=== PATIENT | male | born 1980 | race Caucasian/White ===

== ENCOUNTER 2021-10-09 22:23 | Inpatient (IN) | payer OTHER ==
[2021-10-09] MEDS ORDERED: ACETAMINOPHEN 1000 MG/100 ML BAG IVPB ONE (23:09)
[2021-10-09 23:37] LABS: EOS % 1.1 % (0-4.5); HEMATOCRIT 41.2 % (35.4-49); HEMOGLOBIN 13.9 GM/dL (11.7-16.9); MCH 29.9 pg (25.7-33.7); MCHC 33.8 g/dl (32.0-35.9); MEAN CELL VOLUME 88.4 fl (80-96); MEAN PLT VOLUME 8.5 fl (7.5-11.1); MONO % 8.4 % (3.8-10.2); NEUT % 70.5 % (42.8-82.8); PLATELET COUNT 219 10^3/uL (134-434); RBC 4.66 M/mm3 (4.00-5.60); RDW 13.8 % (11.9-15.9)
[2021-10-09 23:46] LABS: INR 1.09 (0.83-1.09); PROTHROMBIN TIME (PATIENT) 12.5 SEC (9.7-13.0)
[2021-10-10 00:03] LABS: ALBUMIN 3.6 g/dl (3.4-5.0); BLOOD UREA NITROGEN 20.3 mg/dL (7-18); CALCIUM 8.7 mg/dL (8.5-10.1)
[2021-10-10 00:06] LABS: CREATININE 0.9 mg/dL (0.55-1.3)
[2021-10-10 00:08] LABS: BILIRUBIN,TOTAL 0.3 mg/dL (0.2-1); TOT PROT 7.1 g/dl (6.4-8.2)
[2021-10-10] MEDS ORDERED: CEFAZOLIN 1 GM/D5W 1 GM/50 ML BAG IVPB ONE (02:27)
[2021-10-10] MEDS ORDERED: KETOROLAC TROMETHAMINE 15 MG/ML VIAL IM ONE (03:01)
[2021-10-10] MEDS ORDERED: KETOROLAC TROMETHAMINE 15 MG/ML VIAL ONE (03:05)
[2021-10-10] MEDS ORDERED: ceFAZolin SODIUM 1 GM VIAL ONE (03:06)
[2021-10-10] MEDS ORDERED: SODIUM CHLORIDE 1,000 ML IV SCH (07:15)
[2021-10-10] MEDS ORDERED: oxyCODONE HCL 5 MG TABLET ONE (08:03)
[2021-10-10] MEDS: VANCOMYCIN/WATER 1,250 MG/250 ML BAG IVPB SCH ×2 (08:08→21:21)
[2021-10-10] MEDS: oxyCODONE HCL 5 MG TABLET PO PRN ×3 (08:27→23:13)
[2021-10-10 09:48] LABS: BLOOD UREA NITROGEN 13.2 mg/dL (7-18); CALCIUM 9.3 mg/dL (8.5-10.1)
[2021-10-10 09:51] LABS: BASO % 0.5 % (0-2.0); EOS % 1.3 % (0-4.5); HEMATOCRIT 42.8 % (35.4-49); HEMOGLOBIN 14.2 GM/dL (11.7-16.9); LYMPH % 19.3 % (8-40); MCH 29.5 pg (25.7-33.7); MCHC 33.1 g/dl (32.0-35.9); MEAN CELL VOLUME 88.9 fl (80-96); MONO % 8.2 % (3.8-10.2); NEUT % 70.7 % (42.8-82.8); PLATELET COUNT 224 10^3/uL (134-434); RBC 4.81 M/mm3 (4.00-5.60); RDW 14.2 % (11.9-15.9); WHITE BLOOD COUNT 5.7 K/mm3 (4.0-10.0)
[2021-10-10 09:52] LABS: CREATININE 0.7 mg/dL (0.55-1.3)
[2021-10-10 11:00] VITALS: BMI 29.9
[2021-10-10] MEDS: ACETAMINOPHEN 325 MG TABLET (FP) PO PRN ×2 (13:08→18:03)
[2021-10-10] MEDS: SENNOSIDES 8.6MG TABLET (FP) PO SCH (21:21)
[2021-10-11 10:28] LABS: BASO % 0.1 % (0-2.0); EOS % 0.2 % (0-4.5); HEMATOCRIT 39.3 % (35.4-49); HEMOGLOBIN 12.8 GM/dL (11.7-16.9); LYMPH % 21.8 % (8-40); MCH 27.3 pg (25.7-33.7); MCHC 32.7 g/dl (32.0-35.9); MEAN CELL VOLUME 83.6 fl (80-96); MEAN PLT VOLUME 9.9 fl (7.5-11.1); NEUT % 66.9 % (42.8-82.8); PLATELET COUNT 235 10^3/uL (134-434); RDW 13.9 % (11.9-15.9); WHITE BLOOD COUNT 12.2 K/mm3 (4.0-10.0)
[2021-10-11 10:52] LABS: ALBUMIN 3.3 g/dl (3.4-5.0); BLOOD UREA NITROGEN 10.8 mg/dL (7-18); CALCIUM 8.8 mg/dL (8.5-10.1)
[2021-10-11 10:56] LABS: BILIRUBIN,TOTAL 0.8 mg/dL (0.2-1); TOT PROT 6.8 g/dl (6.4-8.2)
[2021-10-11] MEDS ORDERED: VANCOMYCIN/WATER 1,250 MG/250 ML BAG IVPB ONE (13:15)
[2021-10-11] MEDS: oxyCODONE HCL 5 MG TABLET PO PRN (13:50)
[2021-10-11] MEDS ORDERED: HEPARIN NA (PORCINE) 5,000 UNITS/ML 1ML VIAL SQ SCH (14:15)
[2021-10-11] MEDS: ACETAMINOPHEN 325 MG TABLET (FP) PO PRN (16:24)
[2021-10-11] MEDS: SENNOSIDES 8.6MG TABLET (FP) PO SCH (21:16)
[2021-10-12] MEDS ORDERED: ACETAMINOPHEN 325 MG TABLET (FP) PO ONE (08:15)
[2021-10-12 08:44] LABS: INR 1.27 (0.83-1.09); PROTHROMBIN TIME (PATIENT) 14.6 SEC (9.7-13.0)
[2021-10-12 08:45] LABS: HEMATOCRIT 41.6 % (35.4-49); HEMOGLOBIN 13.6 GM/dL (11.7-16.9); MCH 29.1 pg (25.7-33.7); MCHC 32.7 g/dl (32.0-35.9); MEAN CELL VOLUME 89.1 fl (80-96); MEAN PLT VOLUME 8.8 fl (7.5-11.1); PLATELET COUNT 208 10^3/uL (134-434); RBC 4.67 M/mm3 (4.00-5.60); WHITE BLOOD COUNT 6.2 K/mm3 (4.0-10.0)
[2021-10-12] MEDS: oxyCODONE HCL 5 MG TABLET PO PRN (09:11)
[2021-10-12] MEDS: ENOXAPARIN NA (PORCINE) 40 MG/0.4 ML DISP.SYRIN SQ SCH (09:11)
[2021-10-12 10:05] LABS: ALBUMIN 3.3 g/dl (3.4-5.0); BLOOD UREA NITROGEN 12.1 mg/dL (7-18); CALCIUM 8.9 mg/dL (8.5-10.1)
[2021-10-12 10:06] LABS: MAGNESIUM 2.3 mg/dL (1.8-2.4)
[2021-10-12 10:08] LABS: CREATININE 0.9 mg/dL (0.55-1.3)
[2021-10-12 10:10] LABS: BILIRUBIN,TOTAL 0.6 mg/dL (0.2-1)
[2021-10-12] MEDS: PIPERACILLIN/TAZOB 3.375 GM 3.375 GM in DEXTROSE 5%-WATER - 50 ML IVPB SCH ×2 (16:42→17:48)
[2021-10-12] MEDS: VANCOMYCIN/WATER BAGS 1,250 MG/250 ML BAG IVPB SCH (16:47)
[2021-10-12] MEDS: VANCOMYCIN/WATER 1,250 MG/250 ML BAG IVPB SCH (16:48)
[2021-10-12] MEDS ORDERED: DEXTROSE 5%-WATER - 50 ML IVPB ONE (17:32)
[2021-10-12] MEDS ORDERED: PIPERACILLIN/TAZOBACTAM 3.375 GM VIAL IVPB ONE (17:32)
[2021-10-12] MEDS: ACETAMINOPHEN 325 MG TABLET (FP) PO PRN (20:28)
[2021-10-12] MEDS: SENNOSIDES 8.6MG TABLET (FP) PO SCH (22:19)
[2021-10-13] MEDS ORDERED: DEXTROSE 5%-WATER - 50 ML IVPB ONE ×2 (01:41→11:36)
[2021-10-13] MEDS ORDERED: PIPERACILLIN/TAZOBACTAM 3.375 GM VIAL IVPB ONE ×2 (01:41→11:36)
[2021-10-13] MEDS: PIPERACILLIN/TAZOB 3.375 GM 3.375 GM in DEXTROSE 5%-WATER - 50 ML IVPB SCH ×2 (02:49→11:50)
[2021-10-13] MEDS: ENOXAPARIN NA (PORCINE) 40 MG/0.4 ML DISP.SYRIN SQ SCH (11:43)
[2021-10-13] MEDS: VANCOMYCIN/WATER BAGS 1,250 MG/250 ML BAG IVPB SCH (18:14)
[2021-10-13] MEDS: SENNOSIDES 8.6MG TABLET (FP) PO SCH (23:29)
[2021-10-14 09:28] LABS: HEMATOCRIT 39.5 % (35.4-49); HEMOGLOBIN 13.6 GM/dL (11.7-16.9); MCH 30.3 pg (25.7-33.7); MCHC 34.5 g/dl (32.0-35.9); MEAN CELL VOLUME 87.9 fl (80-96); MEAN PLT VOLUME 8.1 fl (7.5-11.1); PLATELET COUNT 201 10^3/uL (134-434); RBC 4.49 M/mm3 (4.00-5.60); RDW 14.1 % (11.9-15.9); WHITE BLOOD COUNT 3.2 K/mm3 (4.0-10.0)
[2021-10-14] MEDS: ENOXAPARIN NA (PORCINE) 40 MG/0.4 ML DISP.SYRIN SQ SCH (09:34)
[2021-10-14 10:15] LABS: BLOOD UREA NITROGEN 16.2 mg/dL (7-18); CALCIUM 8.7 mg/dL (8.5-10.1)
[2021-10-14 10:18] LABS: CREATININE 0.9 mg/dL (0.55-1.3)
[2021-10-14] MEDS: VANCOMYCIN/WATER BAGS 1,250 MG/250 ML BAG IVPB SCH (14:34)
[2021-10-14 15:20] VITALS: BP 126/86; PULSE 79; TEMP 98.6
== END 2021-10-14 17:13 | disposition home or self-care (01) | DRG 383 ==
LOC: JER 22:23 → JERBED 10-10 03:28 → J5S 10-10 10:28
PROVIDERS: ADMIT Hospitalist; ATTEND Internal Medicine
PROC: 0W9 Anatomical Regions, General, Drainage (ICD-10-PCS; principal; 2021-10-11)
DX: L02.811 Cutaneous abscess of head [any part, except face] (principal); A49.02 Methicillin resistant Staphylococcus aureus infection, unspecified site; R91.8 Other nonspecific abnormal finding of lung field; D72.819 Decreased white blood cell count, unspecified
CPT/HCPCS: 36415; 70460-TC; 70491-TC; 71270-TC; 74170-TC; 76536-TC; 80048; 80053; 83735; 84100; 85025; 85027; 85610; 85730; 86850; 86900; 86901; 87040; 87070; 87186; 87205; 93005; 93010; 93306-TC; 99285-25; C9803; G0480; J0131; Q9967; U0003; U0005

== ENCOUNTER 2023-01-22 16:41 | Emergency (ER) | payer OTHER ==
[2023-01-22 16:53] VITALS: BP 146/94; PULSE 102; RESP 20; TEMP 100.4; BMI 33.4
[2023-01-22] MEDS ORDERED: PENICILLIN G BENZATHINE 1,200,000 UNIT/2 ML PFS IM ONE ×2 (18:39→18:41)
== END 2023-01-22 18:53 | disposition home or self-care (01) ==
LOC: JERFT 16:41
DX: R50.9 Fever, unspecified (principal); M79.10 Myalgia, unspecified site; J02.0 Streptococcal pharyngitis
CPT/HCPCS: 87651; 99284-25

== ENCOUNTER 2024-07-02 07:03 | Inpatient (IN) | payer OTHER ==
[2024-07-02 07:14] VITALS: BMI 30.4
[2024-07-02] MEDS ORDERED: SUCRALFATE 1 GM/10 ML UNIT DOSE CUPS PO ONE (07:52)
[2024-07-02] MEDS ORDERED: FAMOTIDINE 20 MG TABLET ONE (08:18)
[2024-07-02] MEDS ORDERED: MAG HYDROX/AL HYDROX/SIMETH 30 ML UNIT-DOSE CUP ONE (08:19)
[2024-07-02] MEDS ORDERED: SUCRALFATE 1 GM TABLET (FP) ONE (08:22)
[2024-07-02 08:25] LABS: BASO % 0.8 % (0-2.0); EOS % 0.6 % (0-4.5); HEMATOCRIT 26.4 % (35.4-49); HEMOGLOBIN 8.7 GM/dL (11.7-16.9); LYMPH % 28.9 % (8-40); MCH 28.7 pg (25.7-33.7); MCHC 32.9 g/dl (32.0-35.9); MEAN CELL VOLUME 87.2 fl (80-96); MEAN PLT VOLUME 8.5 fl (7.5-11.1); MONO % 7.4 % (3.8-10.2); NEUT % 62.3 % (42.8-82.8); PLATELET COUNT 238 10^3/uL (134-434); RBC 3.03 M/mm3 (4.00-5.60); RDW 14.5 % (11.9-15.9); WHITE BLOOD COUNT 6.6 K/mm3 (4.0-10.0)
[2024-07-02] MEDS: FAMOTIDINE 20 MG TABLET PO ONE (08:29)
[2024-07-02] MEDS: SUCRALFATE 1 GM TABLET (FP) PO ONE (08:29)
[2024-07-02] MEDS: MAG HYDROX/AL HYDROX/SIMETH 30 ML UNIT-DOSE CUP PO ONE (08:29)
[2024-07-02 08:32] LABS: INR 1.1 (0.83-1.09); PROTHROMBIN TIME (PATIENT) 12.6 SEC (9.7-13.0)
[2024-07-02 08:34] LABS: ACTIVATED PTT 33.7 SECONDS (25.2-36.5)
[2024-07-02 08:53] LABS: ALBUMIN 3.3 g/dl (3.4-5.0); BLOOD UREA NITROGEN 25.4 mg/dL (7-18); CALCIUM 8.5 mg/dL (8.5-10.1)
[2024-07-02 08:57] LABS: CREATININE 0.8 mg/dL (0.55-1.3)
[2024-07-02 08:58] LABS: BILIRUBIN,TOTAL 0.2 mg/dL (0.2-1); TOT PROT 6.1 g/dl (6.4-8.2)
[2024-07-02] MEDS ORDERED: PANTOPRAZOLE SODIUM 40 MG VIAL ONE (10:19)
[2024-07-02] MEDS: PANTOPRAZOLE SODIUM 40 MG VIAL IVPUSH ONE (10:26)
[2024-07-02] MEDS ORDERED: ACETAMINOPHEN 1000 MG/100 ML BAG IVPB PRN (11:03)
[2024-07-02] MEDS: LACTATED RINGERS SOLUTION 1,000 ML/1,000 ML INFUS.BAG IV SCH (11:27)
[2024-07-02 13:12] LABS: HIV INTERPRETATION NEGATIVE (NEGATIVE)
[2024-07-02] MEDS ORDERED: PANTOPRAZOLE SODIUM 80 MG in SODIUM CHLORIDE 100 ML IVPB SCH (14:00)
[2024-07-02 15:38] LABS: BASO % 0.7 % (0-2.0); EOS % 0.7 % (0-4.5); HEMOGLOBIN 8.1 GM/dL (11.7-16.9); LYMPH % 27.8 % (8-40); MCH 28.4 pg (25.7-33.7); MCHC 32.4 g/dl (32.0-35.9); MEAN CELL VOLUME 87.8 fl (80-96); MEAN PLT VOLUME 8.8 fl (7.5-11.1); MONO % 7.7 % (3.8-10.2); NEUT % 63.1 % (42.8-82.8); PLATELET COUNT 200 10^3/uL (134-434); RBC 2.85 M/mm3 (4.00-5.60); RDW 14.1 % (11.9-15.9); WHITE BLOOD COUNT 6.5 K/mm3 (4.0-10.0)
[2024-07-02] MEDS: PANTOPRAZOLE SODIUM 160 MG in SODIUM CHLORIDE 290 ML IVPB SCH (18:53)
[2024-07-02] MEDS ORDERED: PANTOPRAZOLE SODIUM 40 MG VIAL IVPUSH SCH (22:00)
[2024-07-03 09:53] LABS: BASO % 0.6 % (0-2.0); EOS % 0.9 % (0-4.5); HEMATOCRIT 23.2 % (35.4-49); HEMOGLOBIN 7.6 GM/dL (11.7-16.9); LYMPH % 30.3 % (8-40); MCH 28.8 pg (25.7-33.7); MCHC 32.6 g/dl (32.0-35.9); MEAN CELL VOLUME 88.4 fl (80-96); MONO % 6.7 % (3.8-10.2); NEUT % 61.5 % (42.8-82.8); PLATELET COUNT 189 10^3/uL (134-434); RBC 2.63 M/mm3 (4.00-5.60); RDW 14.2 % (11.9-15.9); WHITE BLOOD COUNT 4.7 K/mm3 (4.0-10.0)
[2024-07-03 10:17] LABS: POTASSIUM 3.8 mmol/L (3.5-5.1)
[2024-07-03 10:20] LABS: BLOOD UREA NITROGEN 11.1 mg/dL (7-18); CALCIUM 8.3 mg/dL (8.5-10.1)
[2024-07-03 10:23] LABS: CREATININE 0.7 mg/dL (0.55-1.3)
[2024-07-03] MEDS ORDERED: MIDAZOLAM HCL 2 MG/2 ML SINGLE DOSE VIAL ONE (13:08)
[2024-07-03] MEDS: PANTOPRAZOLE 40 MG TABLET PO SCH (21:35)
[2024-07-04 09:51] VITALS: RESP 20
[2024-07-04 09:55] LABS: INR 1.1 (0.83-1.09); PROTHROMBIN TIME (PATIENT) 12.6 SEC (9.7-13.0)
[2024-07-04 09:57] LABS: BASO % 0.5 % (0-2.0); EOS % 1.5 % (0-4.5); HEMATOCRIT 24.2 % (35.4-49); HEMOGLOBIN 8.1 GM/dL (11.7-16.9); LYMPH % 26.6 % (8-40); MCH 29.3 pg (25.7-33.7); MCHC 33.6 g/dl (32.0-35.9); MEAN CELL VOLUME 87.1 fl (80-96); MEAN PLT VOLUME 8.6 fl (7.5-11.1); MONO % 5.9 % (3.8-10.2); NEUT % 65.5 % (42.8-82.8); PLATELET COUNT 231 10^3/uL (134-434); RBC 2.78 M/mm3 (4.00-5.60); RDW 14.4 % (11.9-15.9); WHITE BLOOD COUNT 4.4 K/mm3 (4.0-10.0)
[2024-07-04 10:18] LABS: POTASSIUM 3.4 mmol/L (3.5-5.1)
[2024-07-04 10:32] LABS: CALCIUM 8.7 mg/dL (8.5-10.1)
[2024-07-04 10:33] LABS: BLOOD UREA NITROGEN 8.8 mg/dL (7-18); MAGNESIUM 2.1 mg/dL (1.8-2.4)
[2024-07-04 10:34] LABS: CREATININE 0.9 mg/dL (0.55-1.3)
[2024-07-04 14:24] VITALS: BP 130/82; PULSE 99; TEMP 98.6
== END 2024-07-04 17:24 | disposition home or self-care (01) | DRG 241 ==
LOC: JER 07:03 → JERBED 09:04 → J8W 12:22
PROVIDERS: ADMIT Internal Medicine; ATTEND Nurse Practitioner Acute Care
PROC: 0DB68ZX Excision of Stomach, Via Natural or Artificial Opening Endoscopic, Diagnostic (ICD-10-PCS; principal; 2024-07-03 14:30)
DX: K25.4 Chronic or unspecified gastric ulcer with hemorrhage (principal); R91.1 Solitary pulmonary nodule; D62 Acute posthemorrhagic anemia; K29.50 Unspecified chronic gastritis without bleeding; B96.81 Helicobacter pylori [H. pylori] as the cause of diseases classified elsewhere; E66.9 Obesity, unspecified; Z68.30 Body mass index [BMI] 30.0-30.9, adult
CPT/HCPCS: 36415; 70470-TC; 71260-TC; 80048; 80053; 83690; 83735; 85025; 85610; 85730; 86803; 86850; 86900; 86901; 87081; 87389; 88305-TC; 88341-TC; 88342-TC; 99285-25; Q9967